=== PATIENT | female | born 1975 | race Caucasian/White ===

== ENCOUNTER 2024-02-22 01:40 | Emergency (ER) | payer BC ==
[~2024-02-22] VITALS: Ht 152.4 cm; Wt 54.4 kg
[2024-02-22 02:00] VITALS: BP_SYST 113; PULSE 129; RESP 20; TEMP 99; O2SAT 99
[2024-02-22] MEDS: MAGNESIUM CITRATE 300 ML ORAL SOLUTION PO ONE (02:18)
[2024-02-22] MEDS ORDERED: POLY17PO4 PO (02:24)
== END 2024-02-22 02:30 | disposition home or self-care (01) ==
LOC: SED 01:40
DX: K62.3 Rectal prolapse (principal); F12.90 Cannabis use, unspecified, uncomplicated; F15.10 Other stimulant abuse, uncomplicated; Z79.899 Other long term (current) drug therapy
CPT/HCPCS: 99282